=== PATIENT | female | born 1990 | race Caucasian/White ===

== ENCOUNTER 2019-01-09 12:22 | Emergency (ER) | payer MEDICAID ==
[~2019-01-09] VITALS: Wt 63.0 kg
[~2019-01-09 12:22] MED LIST: CIPR500T4 PO; PHEN-538 PO; PREN1TAB9 PO
[2019-01-09 12:33] VITALS: Wt 63.0 kg
[2019-01-09] MEDS ORDERED: morphine 4 MG/ML VIAL IV STA (14:02)
[2019-01-09] MEDS ORDERED: KETOROLAC 30 MG INJ IV STA (14:02)
[2019-01-09] MEDS ORDERED: ONDANSETRON 4 MG INJ IV STA (14:02)
[2019-01-09] MEDS ORDERED: CEFTRIAXONE 1 GM/50 ML (PMX) 50 ML IVPB ONE (14:30)
[2019-01-09] MEDS ORDERED: SOD CHLORIDE 0.9% 1,000 ML IV ONE (14:30)
[2019-01-09] MEDS ORDERED: FAMOTIDINE 20 MG INJ IV ONE (14:30)
[2019-01-09] MEDS ORDERED: SOD CHLORIDE 0.9% 100 ML ONE (15:37)
[2019-01-09] MEDS ORDERED: IOHEXOL 300MG/ML 150 ML BTL ONE (15:37)
[2019-01-09 16:39] VITALS: BP 102/54; PULSE 89; RESP 18
== END 2019-01-09 16:39 | disposition home or self-care (01) ==
LOC: FTE 12:22
DX: N12 Tubulo-interstitial nephritis, not specified as acute or chronic (principal)
CPT/HCPCS: 74177; 76775; 80053; 81001; 81025; 85025; 87086; 96365; 96375; J0696; J1885; J2270; J2405; J7030; Q9967; Z7502; Z7610